=== PATIENT | male | born 1950 | race Caucasian/White ===

== ENCOUNTER 2020-06-29 19:44 | Inpatient (IN) ==
[2020-06-29] MEDS ORDERED: NS 0.9% 1000 ml BAG 1,000 ML IV ONE (21:06)
[2020-06-29] MEDS ORDERED: Lorazepam PYXIS KEY PRN (21:06)
[2020-06-29] MEDS ORDERED: LORazepam 2 mg VIAL 1 ml IV PUSH ONE (21:06)
[2020-06-29 23:00] LABS: ABS Basophils 0.1 10^3/ul (0-0.2); ABS Lymphocytes 0.9 10^3/ul (1.0-4.8); ABS Monocytes 0.4 10^3/ul (0-0.8); ABS Neutrophils 4.3 10^3/ul (1.5-7.7); Eosinophil % 0.4 %; Hematocrit 38 % (42-52); Hemoglobin 12.4 g/dL (14.0-18.0); Lymphocyte % 15.4 %; Mean Corpuscular HGB Conc 32 g/dL (31-36); Mean Corpuscular Hemoglobin 26 pg (27-31); Mean Corpuscular Volume 81 fL (80-94); Mean Platelet Volume 9.3 fL (7.4-10.4); Platelet Count 151 10^3/uL (150-450); Red Blood Count 4.76 10^6 /uL (4.18-5.48); Red Cell Distribution Width 23 % (10-15); White Blood Count 5.7 10^3/uL (3.5-10.8)
[2020-06-29 23:16] LABS: Alcohol, S 100 mg/dL (<10)
[2020-06-29 23:17] LABS: ALT 68 U/L (7-52); Albumin 4.1 g/dL (3.2-5.2); Albumin/Globulin Ratio 1.5 (1-3); Alkaline Phosphatase 166 U/L (34-104); BUN/Creatinine Ratio 12.5 (8-20); Blood Urea Nitrogen 10 mg/dL (6-24); C Reactive Protein 1.04 mg/L (<8.01); CO2 Carbon Dioxide 29 mmol/L (22-32); Calcium 9.1 mg/dL (8.6-10.3); Chloride 105 mmol/L (101-111); EGFR African American 116.7 (>60); EGFR Non-African American 96.4 (>60); Globulin 2.8 g/dL (2-4); Glucose 94 mg/dL (70-100); Sodium 143 mmol/L (135-145); Total Protein 6.9 g/dL (6.4-8.9)
[2020-06-29 23:19] LABS: Troponin I 0.01 ng/mL (<0.03)
[2020-06-29 23:34] LABS: Anion Gap 9 mmol/L (2-11)
[2020-06-30] MEDS ORDERED: LORazepam 2 mg VIAL 1 ml IV PUSH ONE ×3 (00:31→03:42)
[2020-06-30] MEDS ORDERED: Lorazepam PYXIS KEY PRN ×3 (00:31→03:42)
[2020-06-30 01:16] LABS: Potassium Redraw 3.3 mmol/L (3.5-5.0)
[2020-06-30] MEDS ORDERED: Potassium Chlor 20 meq TAB.ER PO ONE (01:22)
[2020-06-30] MEDS ORDERED: Thiamine 100 MG/ML 2 ml VIAL 100 MG, Folic Acid IV 1 MG, Multiple Vitamin IV ADULT 10 M... IV ONE (01:30)
[2020-06-30] MEDS ORDERED: Lisinopril/HCTZ 20/12.5 TB(NF) PO SCH ×2 (02:00→09:00)
[2020-06-30] MEDS: Nicotine PATCH 21 MG/24 HR PATCH TRANSDERM SCH ×2 (08:22→08:45)
[2020-06-30 08:47] LABS: ABS Basophils 0.1 10^3/ul (0-0.2); ABS Lymphocytes 0.9 10^3/ul (1.0-4.8); ABS Monocytes 0.7 10^3/ul (0-0.8); ABS Neutrophils 4.8 10^3/ul (1.5-7.7); Eosinophil % 0.5 %; Hematocrit 36 % (42-52); Hemoglobin 12.2 g/dL (14.0-18.0); Lymphocyte % 14.2 %; Mean Corpuscular HGB Conc 33 g/dL (31-36); Mean Corpuscular Hemoglobin 27 pg (27-31); Mean Corpuscular Volume 80 fL (80-94); Nucleated Red Blood Cells % 0.2; Platelet Count 141 10^3/uL (150-450); Red Blood Count 4.57 10^6 /uL (4.18-5.48); Red Cell Distribution Width 22 % (10-15); White Blood Count 6.6 10^3/uL (3.5-10.8)
[2020-06-30] MEDS: Multivitamins/Minerals TAB PO SCH (08:49)
[2020-06-30] MEDS: Enoxaparin 40 MG/0.4 ML SYR SUBCUT SCH (08:50)
[2020-06-30 08:52] LABS: Urine Appearance Clear; Urine Bilirubin Negative (Negative); Urine Blood Negative (Negative); Urine Color Straw; Urine Glucose Negative (Negative); Urine Ketones Negative (Negative); Urine Nitrite Negative (Negative); Urine Protein Negative (Negative); Urine Specific Gravity 1.006 (1.010-1.030); Urine Urobilinogen Negative (Negative)
[2020-06-30 08:54] LABS: BUN/Creatinine Ratio 12.8 (8-20); Calcium 9.2 mg/dL (8.6-10.3); EGFR African American 120.1 (>60); EGFR Non-African American 99.3 (>60); Potassium 3.4 mmol/L (3.5-5.0)
[2020-06-30 09:19] LABS: Urine Benzodiazepine Screen None Detected (None Detect); Urine Cannabinoids Screen None Detected (None Detect); Urine Opiates Screen None Detected (None Detect)
[2020-06-30] MEDS: LORazepam 2 mg VIAL 1 ml IV PUSH SCH (13:38)
[2020-07-01] MEDS: Hydrocortisone 0.5% OINT 1 TUBE TOPICAL SCH ×3 (01:14→21:22)
[2020-07-01 05:42] LABS: ABS Basophils 0.1 10^3/ul (0-0.2); ABS Eosinophils 0.1 10^3/ul (0-0.6); ABS Monocytes 0.5 10^3/ul (0-0.8); ABS Neutrophils 3.8 10^3/ul (1.5-7.7); Eosinophil % 2.1 %; Hematocrit 36 % (42-52); Lymphocyte % 17.8 %; Mean Corpuscular HGB Conc 34 g/dL (31-36); Mean Corpuscular Hemoglobin 27 pg (27-31); Mean Corpuscular Volume 80 fL (80-94); Mean Platelet Volume 8.9 fL (7.4-10.4); Nucleated Red Blood Cells % 0.1; Platelet Count 131 10^3/uL (150-450); Red Blood Count 4.52 10^6 /uL (4.18-5.48); Red Cell Distribution Width 22 % (10-15); White Blood Count 5.5 10^3/uL (3.5-10.8)
[2020-07-01 05:58] LABS: BUN/Creatinine Ratio 14.4 (8-20); Calcium 9.6 mg/dL (8.6-10.3); EGFR African American 101.8 (>60); EGFR Non-African American 84.2 (>60); Potassium 3.2 mmol/L (3.5-5.0)
[2020-07-01 06:13] LABS: TSH Ultra Thyroid Stim Horm 1.55 mcIU/mL (0.34-5.60)
[2020-07-01 06:25] LABS: Folate 13.51 ng/mL (>3.99)
[2020-07-01] MEDS: Enoxaparin 40 MG/0.4 ML SYR SUBCUT SCH (08:31)
[2020-07-01] MEDS: Multivitamins/Minerals TAB PO SCH (08:35)
[2020-07-01] MEDS: Nicotine PATCH 21 MG/24 HR PATCH TRANSDERM SCH (08:36)
[2020-07-01] MEDS ORDERED: Potassium Chlor 20 meq TAB.ER PO ONE (15:01)
[2020-07-01 15:45] LABS: Magnesium 1.9 mg/dL (1.9-2.7)
[2020-07-02 05:46] LABS: ABS Basophils 0.1 10^3/ul (0-0.2); ABS Eosinophils 0.2 10^3/ul (0-0.6); ABS Lymphocytes 1.2 10^3/ul (1.0-4.8); ABS Monocytes 0.5 10^3/ul (0-0.8); ABS Neutrophils 3.7 10^3/ul (1.5-7.7); Eosinophil % 2.8 %; Hematocrit 38 % (42-52); Hemoglobin 12.2 g/dL (14.0-18.0); Lymphocyte % 21.7 %; Mean Corpuscular HGB Conc 33 g/dL (31-36); Mean Corpuscular Hemoglobin 26 pg (27-31); Mean Corpuscular Volume 80 fL (80-94); Mean Platelet Volume 9.8 fL (7.4-10.4); Nucleated Red Blood Cells % 0.1; Platelet Count 141 10^3/uL (150-450); Red Blood Count 4.67 10^6 /uL (4.18-5.48); Red Cell Distribution Width 23 % (10-15); White Blood Count 5.7 10^3/uL (3.5-10.8)
[2020-07-02 05:57] LABS: BUN/Creatinine Ratio 17.7 (8-20); Calcium 10.1 mg/dL (8.6-10.3); EGFR African American 78.3 (>60); EGFR Non-African American 64.7 (>60); Magnesium 2.2 mg/dL (1.9-2.7); Potassium 3.7 mmol/L (3.5-5.0)
[2020-07-02] MEDS: Multivitamins/Minerals TAB PO SCH (08:26)
[2020-07-02] MEDS: Enoxaparin 40 MG/0.4 ML SYR SUBCUT SCH (08:26)
[2020-07-02] MEDS: Hydrocortisone 0.5% OINT 1 TUBE TOPICAL SCH ×2 (08:27→20:20)
[2020-07-02] MEDS: Nicotine PATCH 21 MG/24 HR PATCH TRANSDERM SCH (08:37)
[2020-07-03] MEDS: Hydrocortisone 0.5% OINT 1 TUBE TOPICAL SCH ×2 (09:27→20:16)
[2020-07-03] MEDS: Nicotine PATCH 21 MG/24 HR PATCH TRANSDERM SCH (09:27)
[2020-07-03] MEDS: Enoxaparin 40 MG/0.4 ML SYR SUBCUT SCH (09:28)
[2020-07-03] MEDS: Multivitamins/Minerals TAB PO SCH (09:30)
[2020-07-04 04:58] LABS: ABS Basophils 0.1 10^3/ul (0-0.2); ABS Eosinophils 0.2 10^3/ul (0-0.6); ABS Lymphocytes 1.3 10^3/ul (1.0-4.8); ABS Monocytes 0.7 10^3/ul (0-0.8); ABS Neutrophils 3.7 10^3/ul (1.5-7.7); Eosinophil % 3.5 %; Hematocrit 36 % (42-52); Lymphocyte % 21.5 %; Mean Corpuscular HGB Conc 33 g/dL (31-36); Mean Corpuscular Hemoglobin 27 pg (27-31); Mean Corpuscular Volume 81 fL (80-94); Mean Platelet Volume 9.8 fL (7.4-10.4); Platelet Count 148 10^3/uL (150-450); Red Cell Distribution Width 23 % (10-15)
[2020-07-04 05:05] LABS: BUN/Creatinine Ratio 23.8 (8-20); Calcium 9.5 mg/dL (8.6-10.3); EGFR African American 71.7 (>60); EGFR Non-African American 59.2 (>60); Potassium 3.4 mmol/L (3.5-5.0)
[2020-07-04] MEDS ORDERED: Potassium Chlor 20 meq TAB.ER PO ONE (08:28)
[2020-07-04] MEDS ORDERED: NS 0.9% 1000 ml BAG 1,000 ML IV SCH (08:30)
[2020-07-04] MEDS: Multivitamins/Minerals TAB PO SCH (10:01)
[2020-07-04] MEDS: Hydrocortisone 0.5% OINT 1 TUBE TOPICAL SCH ×2 (10:02→20:45)
[2020-07-04] MEDS: Enoxaparin 40 MG/0.4 ML SYR SUBCUT SCH (10:02)
[2020-07-04] MEDS: Nicotine PATCH 21 MG/24 HR PATCH TRANSDERM SCH (10:03)
[2020-07-04] MEDS ORDERED: Haloperidol 5 mg/ml SDV IV/IM 5 MG/ML AMP IV SLOW PU PRN (19:27)
[2020-07-04] MEDS: LORazepam 2 mg VIAL 1 ml IV PUSH SCH (20:41)
[2020-07-04] MEDS ORDERED: LORazepam 2 mg VIAL 1 ml IV PUSH SCH (21:00)
[2020-07-05 07:16] LABS: BUN/Creatinine Ratio 22.1 (8-20); Calcium 9.4 mg/dL (8.6-10.3); EGFR Non-African American 54.6 (>60); Potassium 3.7 mmol/L (3.5-5.0)
[2020-07-05] MEDS: Enoxaparin 40 MG/0.4 ML SYR SUBCUT SCH (08:06)
[2020-07-05] MEDS: Nicotine PATCH 21 MG/24 HR PATCH TRANSDERM SCH (08:07)
[2020-07-05] MEDS: Multivitamins/Minerals TAB PO SCH (08:08)
[2020-07-05] MEDS: NS 0.9% 1000 ml BAG 1,000 ML IV SCH ×2 (09:38→23:08)
[2020-07-05] MEDS: Hydrocortisone 0.5% OINT 1 TUBE TOPICAL SCH ×2 (10:35→21:38)
[2020-07-05] MEDS: Haloperidol 5 mg/ml SDV IV/IM 5 MG/ML AMP IM PRN (15:29)
[2020-07-05 16:56] LABS: Albumin 3.8 g/dL (3.2-5.2); Albumin/Globulin Ratio 1.7 (1-3); BUN/Creatinine Ratio 23.1 (8-20); Calcium 9.5 mg/dL (8.6-10.3); EGFR African American 75.2 (>60); EGFR Non-African American 62.2 (>60); Globulin 2.3 g/dL (2-4); Potassium 3.6 mmol/L (3.5-5.0); Total Bilirubin 0.6 mg/dL (0.2-1.0); Total Protein 6.1 g/dL (6.4-8.9)
[2020-07-05] MEDS ORDERED: Lorazepam PYXIS KEY PRN (18:55)
[2020-07-05] MEDS: LORazepam 2 mg VIAL 1 ml IV PUSH SCH ×2 (21:13→23:17)
[2020-07-06 05:10] LABS: Urine Appearance Cloudy; Urine Bilirubin Negative (Negative); Urine Blood 2+ (Negative); Urine Color Yellow; Urine Glucose Negative (Negative); Urine Ketones Negative (Negative); Urine Nitrite Positive (Negative); Urine Protein Negative (Negative); Urine Specific Gravity 1.011 (1.010-1.030); Urine Urobilinogen Negative (Negative)
[2020-07-06 05:25] LABS: Urine Bacteria Absent (Absent); Urine Red Blood Cell 2+(6-10/hpf) (Absent); Urine White Blood Cell 2+(11-20/hpf) (Absent)
[2020-07-06 06:14] LABS: Albumin 3.6 g/dL (3.2-5.2); Albumin/Globulin Ratio 1.5 (1-3); BUN/Creatinine Ratio 18.2 (8-20); Calcium 8.9 mg/dL (8.6-10.3); EGFR African American 91.2 (>60); EGFR Non-African American 75.4 (>60); Globulin 2.4 g/dL (2-4); Potassium 3.4 mmol/L (3.5-5.0); Total Bilirubin 0.9 mg/dL (0.2-1.0)
[2020-07-06 08:01] LABS: ABS Basophils 0.1 10^3/ul (0-0.2); ABS Eosinophils 0.1 10^3/ul (0-0.6); ABS Lymphocytes 0.8 10^3/ul (1.0-4.8); ABS Monocytes 0.8 10^3/ul (0-0.8); ABS Neutrophils 4.8 10^3/ul (1.5-7.7); Eosinophil % 1.7 %; Hematocrit 34 % (42-52); Lymphocyte % 12.5 %; Mean Corpuscular HGB Conc 33 g/dL (31-36); Mean Corpuscular Hemoglobin 27 pg (27-31); Mean Corpuscular Volume 82 fL (80-94); Mean Platelet Volume 9.8 fL (7.4-10.4); Platelet Count 137 10^3/uL (150-450); Red Blood Count 4.11 10^6 /uL (4.18-5.48); Red Cell Distribution Width 23 % (10-15); White Blood Count 6.7 10^3/uL (3.5-10.8)
[2020-07-06] MEDS: Enoxaparin 40 MG/0.4 ML SYR SUBCUT SCH (08:09)
[2020-07-06] MEDS: Nicotine PATCH 21 MG/24 HR PATCH TRANSDERM SCH (08:09)
[2020-07-06] MEDS: Multivitamins/Minerals TAB PO SCH (08:10)
[2020-07-06] MEDS: Hydrocortisone 0.5% OINT 1 TUBE TOPICAL SCH ×2 (08:10→20:38)
[2020-07-06] MEDS: Haloperidol 5 mg/ml SDV IV/IM 5 MG/ML AMP IM PRN (11:50)
[2020-07-06] MEDS: LORazepam 2 mg VIAL 1 ml IV PUSH PRN (12:39)
[2020-07-06] MEDS ORDERED: Potassium Chlor 20 meq TAB.ER PO ONE (13:11)
[2020-07-06] MEDS: cefTRIAXone 1 gm/50 mL NS BAG 1 GM/50 ML BAG IVPB SCH (14:05)
[2020-07-07 05:33] LABS: ABS Basophils 0.1 10^3/ul (0-0.2); ABS Eosinophils 0.2 10^3/ul (0-0.6); ABS Lymphocytes 1.1 10^3/ul (1.0-4.8); ABS Neutrophils 4.1 10^3/ul (1.5-7.7); Eosinophil % 2.7 %; Hematocrit 36 % (42-52); Hemoglobin 12.2 g/dL (14.0-18.0); Lymphocyte % 16.8 %; Mean Corpuscular HGB Conc 33 g/dL (31-36); Mean Corpuscular Hemoglobin 27 pg (27-31); Mean Corpuscular Volume 82 fL (80-94); Mean Platelet Volume 10.2 fL (7.4-10.4); Platelet Count 171 10^3/uL (150-450); Red Blood Count 4.44 10^6 /uL (4.18-5.48); Red Cell Distribution Width 23 % (10-15); White Blood Count 6.4 10^3/uL (3.5-10.8)
[2020-07-07 05:54] LABS: BUN/Creatinine Ratio 16.5 (8-20); Calcium 9.5 mg/dL (8.6-10.3); EGFR African American 87.2 (>60); Potassium 3.8 mmol/L (3.5-5.0)
[2020-07-07] MEDS: Nicotine PATCH 21 MG/24 HR PATCH TRANSDERM SCH (08:14)
[2020-07-07] MEDS: Multivitamins/Minerals TAB PO SCH (08:15)
[2020-07-07] MEDS: Enoxaparin 40 MG/0.4 ML SYR SUBCUT SCH (08:16)
[2020-07-07] MEDS: Hydrocortisone 0.5% OINT 1 TUBE TOPICAL SCH ×2 (08:16→20:52)
[2020-07-07] MEDS: cefTRIAXone 1 gm/50 mL NS BAG 1 GM/50 ML BAG IVPB SCH (12:39)
[2020-07-07] MEDS: LORazepam 2 mg VIAL 1 ml IV PUSH PRN (21:41)
[2020-07-08 05:25] LABS: BUN/Creatinine Ratio 18.6 (8-20); Calcium 9.3 mg/dL (8.6-10.3); EGFR African American 74.5 (>60); EGFR Non-African American 61.6 (>60); Potassium 3.5 mmol/L (3.5-5.0)
[2020-07-08] MEDS: Multivitamins/Minerals TAB PO SCH (08:49)
[2020-07-08] MEDS: Enoxaparin 40 MG/0.4 ML SYR SUBCUT SCH (08:49)
[2020-07-08] MEDS: Nicotine PATCH 21 MG/24 HR PATCH TRANSDERM SCH (08:49)
[2020-07-08] MEDS: Hydrocortisone 0.5% OINT 1 TUBE TOPICAL SCH ×3 (08:49→22:13)
[2020-07-08] MEDS: LORazepam 2 mg VIAL 1 ml IV PUSH PRN (13:21)
[2020-07-08] MEDS: cefTRIAXone 1 gm/50 mL NS BAG 1 GM/50 ML BAG IVPB SCH (13:21)
[2020-07-08] MEDS: Haloperidol 5 mg/ml SDV IV/IM 5 MG/ML AMP IM PRN (14:39)
[2020-07-09] MEDS: Multivitamins/Minerals TAB PO SCH (09:14)
[2020-07-09] MEDS: Enoxaparin 40 MG/0.4 ML SYR SUBCUT SCH ×2 (09:14→09:26)
[2020-07-09] MEDS: Hydrocortisone 0.5% OINT 1 TUBE TOPICAL SCH ×2 (09:16→21:27)
[2020-07-09] MEDS: Nicotine PATCH 21 MG/24 HR PATCH TRANSDERM SCH (09:26)
[2020-07-09] MEDS: cefTRIAXone 1 gm/50 mL NS BAG 1 GM/50 ML BAG IVPB SCH (14:32)
[2020-07-09] MEDS: LORazepam 2 mg VIAL 1 ml IV PUSH PRN (16:41)
[2020-07-09] MEDS: Haloperidol 5 mg/ml SDV IV/IM 5 MG/ML AMP IM PRN (23:44)
[2020-07-10] MEDS: LORazepam 2 mg VIAL 1 ml IV PUSH PRN ×3 (07:02→21:57)
[2020-07-10] MEDS: Haloperidol 5 mg/ml SDV IV/IM 5 MG/ML AMP IM PRN (07:39)
[2020-07-10] MEDS: Multivitamins/Minerals TAB PO SCH (09:36)
[2020-07-10] MEDS: Hydrocortisone 0.5% OINT 1 TUBE TOPICAL SCH ×2 (09:37→23:30)
[2020-07-10] MEDS: Nicotine PATCH 21 MG/24 HR PATCH TRANSDERM SCH (09:37)
[2020-07-10] MEDS: Enoxaparin 40 MG/0.4 ML SYR SUBCUT SCH (09:38)
[2020-07-10] MEDS ORDERED: LORazepam 2 mg VIAL 1 ml IV PUSH ONE (10:53)
[2020-07-10] MEDS ORDERED: LORazepam 2 mg VIAL 1 ml ONE (10:58)
[2020-07-10] MEDS: cefTRIAXone 1 gm/50 mL NS BAG 1 GM/50 ML BAG IVPB SCH (14:54)
[2020-07-11] MEDS: LORazepam 2 mg VIAL 1 ml IV PUSH PRN ×4 (03:42→23:25)
[2020-07-11] MEDS: Nicotine GUM 4MG FRUIT FLAVOR PO PRN ×2 (09:05→23:24)
[2020-07-11] MEDS: Multivitamins/Minerals TAB PO SCH (10:04)
[2020-07-11] MEDS: Enoxaparin 40 MG/0.4 ML SYR SUBCUT SCH (10:07)
[2020-07-11] MEDS: Nicotine PATCH 21 MG/24 HR PATCH TRANSDERM SCH (10:17)
[2020-07-11] MEDS: Hydrocortisone 0.5% OINT 1 TUBE TOPICAL SCH (10:17)
[2020-07-11] MEDS: cefTRIAXone 1 gm/50 mL NS BAG 1 GM/50 ML BAG IVPB SCH (14:00)
[2020-07-12] MEDS: Hydrocortisone 0.5% OINT 1 TUBE TOPICAL SCH ×4 (00:32→23:52)
[2020-07-12] MEDS: Multivitamins/Minerals TAB PO SCH (09:55)
[2020-07-12] MEDS: Enoxaparin 40 MG/0.4 ML SYR SUBCUT SCH (09:56)
[2020-07-12] MEDS: Nicotine PATCH 21 MG/24 HR PATCH TRANSDERM SCH (10:01)
[2020-07-12] MEDS: LORazepam 2 mg VIAL 1 ml IV PUSH PRN ×3 (12:01→22:21)
[2020-07-12] MEDS: Haloperidol 5 mg/ml SDV IV/IM 5 MG/ML AMP IM PRN (14:35)
[2020-07-12] MEDS: cefTRIAXone 1 gm/50 mL NS BAG 1 GM/50 ML BAG IVPB SCH (14:36)
[2020-07-12] MEDS: Nicotine GUM 4MG FRUIT FLAVOR PO PRN (20:08)
[2020-07-13] MEDS: Enoxaparin 40 MG/0.4 ML SYR SUBCUT SCH (09:40)
[2020-07-13] MEDS: Multivitamins/Minerals TAB PO SCH (09:41)
[2020-07-13] MEDS: Nicotine PATCH 21 MG/24 HR PATCH TRANSDERM SCH (09:41)
[2020-07-13] MEDS: Hydrocortisone 0.5% OINT 1 TUBE TOPICAL SCH ×2 (09:42→21:16)
[2020-07-13] MEDS: LORazepam 2 mg VIAL 1 ml IV PUSH PRN ×2 (17:47→23:19)
[2020-07-14] MEDS: Multivitamins/Minerals TAB PO SCH (07:47)
[2020-07-14] MEDS: Enoxaparin 40 MG/0.4 ML SYR SUBCUT SCH (07:49)
[2020-07-14] MEDS: Nicotine PATCH 21 MG/24 HR PATCH TRANSDERM SCH (07:49)
[2020-07-14] MEDS: Hydrocortisone 0.5% OINT 1 TUBE TOPICAL SCH ×2 (07:54→22:15)
[2020-07-14] MEDS: LORazepam 2 mg VIAL 1 ml IV PUSH PRN ×3 (08:34→22:12)
[2020-07-14] MEDS: Haloperidol 5 mg/ml SDV IV/IM 5 MG/ML AMP IM PRN (17:33)
[2020-07-15] MEDS: Enoxaparin 40 MG/0.4 ML SYR SUBCUT SCH (08:17)
[2020-07-15] MEDS: Multivitamins/Minerals TAB PO SCH (08:18)
[2020-07-15] MEDS: Nicotine PATCH 21 MG/24 HR PATCH TRANSDERM SCH (08:20)
[2020-07-15] MEDS: Hydrocortisone 0.5% OINT 1 TUBE TOPICAL SCH ×2 (08:20→19:55)
[2020-07-16] MEDS: Multivitamins/Minerals TAB PO SCH (08:44)
[2020-07-16] MEDS: Nicotine PATCH 21 MG/24 HR PATCH TRANSDERM SCH (08:46)
[2020-07-16] MEDS: Enoxaparin 40 MG/0.4 ML SYR SUBCUT SCH (08:46)
[2020-07-16] MEDS: Hydrocortisone 0.5% OINT 1 TUBE TOPICAL SCH ×2 (08:47→20:13)
[2020-07-16] MEDS: LORazepam 2 mg VIAL 1 ml IV PUSH PRN (09:06)
[2020-07-16] MEDS: Haloperidol 5 mg/ml SDV IV/IM 5 MG/ML AMP IM PRN (10:49)
[2020-07-17] MEDS: Enoxaparin 40 MG/0.4 ML SYR SUBCUT SCH (08:37)
[2020-07-17] MEDS: Nicotine PATCH 21 MG/24 HR PATCH TRANSDERM SCH ×2 (08:38→08:43)
[2020-07-17] MEDS: Multivitamins/Minerals TAB PO SCH (08:39)
[2020-07-17] MEDS: Hydrocortisone 0.5% OINT 1 TUBE TOPICAL SCH ×3 (08:41→19:51)
[2020-07-17] MEDS: Haloperidol 5 mg/ml SDV IV/IM 5 MG/ML AMP IM PRN (17:30)
[2020-07-17] MEDS: LORazepam 2 mg VIAL 1 ml IV PUSH PRN (18:20)
[2020-07-18 05:39] LABS: Hematocrit 37 % (42-52); Hemoglobin 11.7 g/dL (14.0-18.0); Mean Platelet Volume 9.1 fL (7.4-10.4); Platelet Count 220 10^3/uL (150-450)
[2020-07-18 06:19] LABS: EGFR African American 90.2 (>60); EGFR Non-African American 74.5 (>60)
[2020-07-18] MEDS: Enoxaparin 40 MG/0.4 ML SYR SUBCUT SCH (09:43)
[2020-07-18] MEDS: Hydrocortisone 0.5% OINT 1 TUBE TOPICAL SCH ×3 (09:43→22:33)
[2020-07-18] MEDS: Multivitamins/Minerals TAB PO SCH (09:43)
[2020-07-18] MEDS: Nicotine PATCH 21 MG/24 HR PATCH TRANSDERM SCH (09:48)
[2020-07-19] MEDS: LORazepam 2 mg VIAL 1 ml IV PUSH PRN ×2 (00:43→16:55)
[2020-07-19] MEDS: Multivitamins/Minerals TAB PO SCH (09:30)
[2020-07-19] MEDS: Enoxaparin 40 MG/0.4 ML SYR SUBCUT SCH (09:33)
[2020-07-19] MEDS: Nicotine PATCH 21 MG/24 HR PATCH TRANSDERM SCH (09:40)
[2020-07-19] MEDS: Hydrocortisone 0.5% OINT 1 TUBE TOPICAL SCH ×2 (09:41→20:38)
[2020-07-20] MEDS: LORazepam 2 mg VIAL 1 ml IV PUSH PRN (00:15)
[2020-07-20] MEDS: Enoxaparin 40 MG/0.4 ML SYR SUBCUT SCH (09:02)
[2020-07-20] MEDS: Nicotine PATCH 21 MG/24 HR PATCH TRANSDERM SCH (09:02)
[2020-07-20] MEDS: Multivitamins/Minerals TAB PO SCH (09:03)
[2020-07-20] MEDS: Hydrocortisone 0.5% OINT 1 TUBE TOPICAL SCH ×2 (11:04→21:17)
[2020-07-21] MEDS: Enoxaparin 40 MG/0.4 ML SYR SUBCUT SCH (09:56)
[2020-07-21] MEDS: Multivitamins/Minerals TAB PO SCH (09:58)
[2020-07-21] MEDS: Hydrocortisone 0.5% OINT 1 TUBE TOPICAL SCH ×2 (10:04→19:18)
[2020-07-21] MEDS: Nicotine PATCH 21 MG/24 HR PATCH TRANSDERM SCH (10:04)
[2020-07-22] MEDS: Enoxaparin 40 MG/0.4 ML SYR SUBCUT SCH (07:28)
[2020-07-22] MEDS: Multivitamins/Minerals TAB PO SCH (07:30)
[2020-07-22] MEDS: Nicotine PATCH 21 MG/24 HR PATCH TRANSDERM SCH (07:32)
[2020-07-22] MEDS: Hydrocortisone 0.5% OINT 1 TUBE TOPICAL SCH ×2 (07:38→20:34)
[2020-07-23] MEDS: Multivitamins/Minerals TAB PO SCH (09:32)
[2020-07-23] MEDS: Nicotine PATCH 21 MG/24 HR PATCH TRANSDERM SCH (09:36)
[2020-07-23] MEDS: Enoxaparin 40 MG/0.4 ML SYR SUBCUT SCH (09:36)
[2020-07-23] MEDS: Hydrocortisone 0.5% OINT 1 TUBE TOPICAL SCH ×2 (09:37→20:41)
[2020-07-23] MEDS: LORazepam 2 mg VIAL 1 ml IV PUSH PRN (11:20)
[2020-07-24] MEDS: Multivitamins/Minerals TAB PO SCH (08:19)
[2020-07-24] MEDS: Hydrocortisone 0.5% OINT 1 TUBE TOPICAL SCH ×2 (08:20→20:11)
[2020-07-24] MEDS: Nicotine PATCH 21 MG/24 HR PATCH TRANSDERM SCH (08:20)
[2020-07-24] MEDS: Enoxaparin 40 MG/0.4 ML SYR SUBCUT SCH ×2 (08:29→08:31)
[2020-07-25] MEDS: Multivitamins/Minerals TAB PO SCH (09:04)
[2020-07-25] MEDS: Enoxaparin 40 MG/0.4 ML SYR SUBCUT SCH (09:04)
[2020-07-25] MEDS: Nicotine PATCH 21 MG/24 HR PATCH TRANSDERM SCH (09:05)
[2020-07-25] MEDS: Hydrocortisone 0.5% OINT 1 TUBE TOPICAL SCH ×3 (09:05→23:06)
[2020-07-26] MEDS: Nicotine PATCH 21 MG/24 HR PATCH TRANSDERM SCH (09:19)
[2020-07-26] MEDS: Multivitamins/Minerals TAB PO SCH (09:19)
[2020-07-26] MEDS: Hydrocortisone 0.5% OINT 1 TUBE TOPICAL SCH ×2 (09:20→21:13)
[2020-07-26] MEDS: Enoxaparin 40 MG/0.4 ML SYR SUBCUT SCH (09:24)
[2020-07-27] MEDS: Multivitamins/Minerals TAB PO SCH (09:53)
[2020-07-27] MEDS: Enoxaparin 40 MG/0.4 ML SYR SUBCUT SCH (09:54)
[2020-07-27] MEDS: Nicotine PATCH 21 MG/24 HR PATCH TRANSDERM SCH (09:55)
[2020-07-27] MEDS: Hydrocortisone 0.5% OINT 1 TUBE TOPICAL SCH ×2 (09:56→21:00)
[2020-07-28] MEDS: Enoxaparin 40 MG/0.4 ML SYR SUBCUT SCH ×2 (09:20→09:25)
[2020-07-28] MEDS: Multivitamins/Minerals TAB PO SCH (09:22)
[2020-07-28] MEDS: Hydrocortisone 0.5% OINT 1 TUBE TOPICAL SCH ×2 (09:25→21:05)
[2020-07-28] MEDS: Nicotine PATCH 21 MG/24 HR PATCH TRANSDERM SCH (09:25)
[2020-07-29] MEDS: Enoxaparin 40 MG/0.4 ML SYR SUBCUT SCH (08:25)
[2020-07-29] MEDS: Nicotine PATCH 21 MG/24 HR PATCH TRANSDERM SCH (08:25)
[2020-07-29] MEDS: Multivitamins/Minerals TAB PO SCH (08:27)
[2020-07-29] MEDS: Hydrocortisone 0.5% OINT 1 TUBE TOPICAL SCH ×2 (08:28→22:20)
[2020-07-30] MEDS: Multivitamins/Minerals TAB PO SCH (08:42)
[2020-07-30] MEDS: Enoxaparin 40 MG/0.4 ML SYR SUBCUT SCH (08:43)
[2020-07-30] MEDS: Nicotine PATCH 21 MG/24 HR PATCH TRANSDERM SCH (08:43)
[2020-07-30] MEDS: Hydrocortisone 0.5% OINT 1 TUBE TOPICAL SCH ×2 (10:30→20:00)
[2020-07-31] MEDS: Enoxaparin 40 MG/0.4 ML SYR SUBCUT SCH (08:12)
[2020-07-31] MEDS: Nicotine PATCH 21 MG/24 HR PATCH TRANSDERM SCH (08:13)
[2020-07-31] MEDS: Multivitamins/Minerals TAB PO SCH (08:27)
[2020-07-31] MEDS: Hydrocortisone 0.5% OINT 1 TUBE TOPICAL SCH ×2 (08:28→20:08)
[2020-07-31] MEDS: HYDROCORTISONE 0.5% TOPICAL SCH (21:51)
[2020-08-01] MEDS: Multivitamins/Minerals TAB PO SCH (07:43)
[2020-08-01] MEDS: Enoxaparin 40 MG/0.4 ML SYR SUBCUT SCH (07:47)
[2020-08-01] MEDS: HYDROCORTISONE 0.5% TOPICAL SCH ×2 (07:47→19:32)
[2020-08-01] MEDS: Nicotine PATCH 21 MG/24 HR PATCH TRANSDERM SCH (07:47)
[2020-08-02] MEDS: Multivitamins/Minerals TAB PO SCH (09:06)
[2020-08-02] MEDS: HYDROCORTISONE 0.5% TOPICAL SCH ×2 (09:06→21:56)
[2020-08-02] MEDS: Enoxaparin 40 MG/0.4 ML SYR SUBCUT SCH (09:19)
[2020-08-02] MEDS: Nicotine PATCH 21 MG/24 HR PATCH TRANSDERM SCH (09:19)
[2020-08-03] MEDS: Multivitamins/Minerals TAB PO SCH (10:29)
[2020-08-03] MEDS: Enoxaparin 40 MG/0.4 ML SYR SUBCUT SCH (10:31)
[2020-08-03] MEDS: Nicotine PATCH 21 MG/24 HR PATCH TRANSDERM SCH (10:31)
[2020-08-03] MEDS: HYDROCORTISONE 0.5% TOPICAL SCH ×2 (10:31→21:01)
[2020-08-04] MEDS: Multivitamins/Minerals TAB PO SCH (10:21)
[2020-08-04] MEDS: Nicotine PATCH 21 MG/24 HR PATCH TRANSDERM SCH (10:22)
[2020-08-04] MEDS: HYDROCORTISONE 0.5% TOPICAL SCH ×2 (10:22→20:06)
[2020-08-04] MEDS: Enoxaparin 40 MG/0.4 ML SYR SUBCUT SCH (10:22)
[2020-08-05] MEDS: Multivitamins/Minerals TAB PO SCH (09:31)
[2020-08-05] MEDS: Enoxaparin 40 MG/0.4 ML SYR SUBCUT SCH (09:38)
[2020-08-05] MEDS: HYDROCORTISONE 0.5% TOPICAL SCH ×2 (09:39→21:21)
[2020-08-05] MEDS: Nicotine PATCH 21 MG/24 HR PATCH TRANSDERM SCH (09:39)
[2020-08-05] MEDS ORDERED: Haloperidol 5 mg/ml SDV IV/IM 5 MG/ML AMP IM PRN (13:01)
[2020-08-06] MEDS: HYDROCORTISONE 0.5% TOPICAL SCH ×2 (08:59→20:24)
[2020-08-06] MEDS: Enoxaparin 40 MG/0.4 ML SYR SUBCUT SCH (09:00)
[2020-08-06] MEDS: Multivitamins/Minerals TAB PO SCH (09:00)
[2020-08-06] MEDS: Nicotine PATCH 21 MG/24 HR PATCH TRANSDERM SCH (09:01)
[2020-08-07] MEDS: Multivitamins/Minerals TAB PO SCH (09:12)
[2020-08-07] MEDS: Enoxaparin 40 MG/0.4 ML SYR SUBCUT SCH (09:13)
[2020-08-07] MEDS: Nicotine PATCH 21 MG/24 HR PATCH TRANSDERM SCH (09:13)
[2020-08-07] MEDS: HYDROCORTISONE 0.5% TOPICAL SCH ×2 (09:14→19:45)
[2020-08-08] MEDS: Multivitamins/Minerals TAB PO SCH (10:01)
[2020-08-08] MEDS: HYDROCORTISONE 0.5% TOPICAL SCH ×2 (10:01→20:09)
[2020-08-08] MEDS: Enoxaparin 40 MG/0.4 ML SYR SUBCUT SCH (10:02)
[2020-08-08] MEDS: Nicotine PATCH 21 MG/24 HR PATCH TRANSDERM SCH (10:02)
[2020-08-09] MEDS: Nicotine PATCH 21 MG/24 HR PATCH TRANSDERM SCH (07:30)
[2020-08-09] MEDS: Enoxaparin 40 MG/0.4 ML SYR SUBCUT SCH (07:31)
[2020-08-09] MEDS: HYDROCORTISONE 0.5% TOPICAL SCH ×2 (07:31→19:38)
[2020-08-09] MEDS: Multivitamins/Minerals TAB PO SCH (07:36)
[2020-08-10] MEDS: HYDROCORTISONE 0.5% TOPICAL SCH ×2 (08:40→20:43)
[2020-08-10] MEDS: Multivitamins/Minerals TAB PO SCH (08:40)
[2020-08-10] MEDS: Nicotine PATCH 21 MG/24 HR PATCH TRANSDERM SCH (08:40)
[2020-08-10] MEDS: Enoxaparin 40 MG/0.4 ML SYR SUBCUT SCH (09:13)
[2020-08-11] MEDS: Multivitamins/Minerals TAB PO SCH (08:19)
[2020-08-11] MEDS: HYDROCORTISONE 0.5% TOPICAL SCH ×2 (08:22→20:48)
[2020-08-11] MEDS: Nicotine PATCH 21 MG/24 HR PATCH TRANSDERM SCH (08:22)
[2020-08-11] MEDS: Enoxaparin 40 MG/0.4 ML SYR SUBCUT SCH (08:22)
[2020-08-12] MEDS: Multivitamins/Minerals TAB PO SCH (07:50)
[2020-08-12] MEDS: Enoxaparin 40 MG/0.4 ML SYR SUBCUT SCH (07:52)
[2020-08-12] MEDS: HYDROCORTISONE 0.5% TOPICAL SCH ×2 (07:52→21:00)
[2020-08-12] MEDS: Nicotine PATCH 21 MG/24 HR PATCH TRANSDERM SCH (07:53)
[2020-08-13] MEDS: Multivitamins/Minerals TAB PO SCH (08:44)
[2020-08-13] MEDS: HYDROCORTISONE 0.5% TOPICAL SCH (08:45)
[2020-08-13] MEDS: Nicotine PATCH 21 MG/24 HR PATCH TRANSDERM SCH (08:45)
[2020-08-13] MEDS: Enoxaparin 40 MG/0.4 ML SYR SUBCUT SCH (08:45)
[2020-08-13 08:50] VITALS: BP 128/72
== END 2020-08-13 16:50 | DRG 897 ==
LOC: ED 19:44 → MEDTELE 06-30 03:22 → SUATTDRO 06-30 03:22 → MEDTELE 06-30 06:10
PROVIDERS: ADMIT Internal Medicine; ATTEND Student in an Organized Health Care Education/Training Program

== ENCOUNTER 2020-12-15 13:31 | Inpatient (IN) ==
[2020-12-15] MEDS ORDERED: NS 0.9% 1000 ml BAG 1,000 ML IV ONE (14:02)
[2020-12-15 15:22] LABS: ABS Basophils 0.1 10^3/ul (0-0.2); ABS Eosinophils 0.1 10^3/ul (0-0.6); ABS Lymphocytes 0.7 10^3/ul (1.0-4.8); ABS Monocytes 1.1 10^3/ul (0-0.8); ABS Neutrophils 11.4 10^3/ul (1.5-7.7); Eosinophil % 1.1 %; Hematocrit 48 % (42-52); Hemoglobin 16.3 g/dL (14.0-18.0); Lymphocyte % 5.4 %; Mean Corpuscular HGB Conc 34 g/dL (31-36); Mean Corpuscular Hemoglobin 31 pg (27-31); Mean Corpuscular Volume 91 fL (80-94); Nucleated Red Blood Cells % 0.1; Platelet Count 143 10^3/uL (150-450); Red Blood Count 5.24 10^6 /uL (4.18-5.48); Red Cell Distribution Width 17 % (10-15); White Blood Count 13.4 10^3/uL (3.5-10.8)
[2020-12-15 15:35] LABS: Troponin I 0.05 ng/mL (<0.03)
[2020-12-15 15:45] LABS: ALT 15 U/L (7-52); AST 15 U/L (13-39); Albumin 3.8 g/dL (3.2-5.2); Albumin/Globulin Ratio 1.3 (1-3); Alkaline Phosphatase 97 U/L (35-149); Anion Gap 12 mmol/L (2-11); Blood Urea Nitrogen 19 mg/dL (6-24); CO2 Carbon Dioxide 22 mmol/L (22-32); Calcium 9.7 mg/dL (8.6-10.3); Chloride 105 mmol/L (101-111); Globulin 2.9 g/dL (2-4); Glucose 109 mg/dL (70-100); Magnesium 2.1 mg/dL (1.9-2.7); Sodium 139 mmol/L (135-145); Total Protein 6.7 g/dL (6.4-8.9)
[2020-12-15 16:18] LABS: Alcohol, S < 10 mg/dL (<10)
[2020-12-15 18:41] LABS: Valproic Acid < 13.0 mcg/mL (50-100)
[2020-12-15] MEDS ORDERED: Piperacillin/Tazobac ADVAN 3.375 GM in NS 0.9% 100 ml BAG 100 ML IV ONE (19:40)
[2020-12-15] MEDS ORDERED: Zosyn per Pharmacy NOTE FOLLOW UP SCH (20:00)
[2020-12-15 20:08] LABS: Albumin 3.5 g/dL (3.2-5.2); Albumin/Globulin Ratio 1.3 (1-3); Calcium 9.2 mg/dL (8.6-10.3); EGFR African American 70.8 (>60); EGFR Non-African American 58.5 (>60); Globulin 2.7 g/dL (2-4); Potassium 4.1 mmol/L (3.5-5.0); Total Protein 6.2 g/dL (6.4-8.9)
[2020-12-15 20:54] LABS: Troponin I 0.07 ng/mL (<0.03)
[2020-12-15 21:54] LABS: Urine Appearance Cloudy; Urine Bilirubin Negative (Negative); Urine Blood 1+ (Negative); Urine Color Amber; Urine Glucose Negative (Negative); Urine Ketones Negative (Negative); Urine Nitrite Positive (Negative); Urine Protein 1+(30 mg/dL) (Negative); Urine Specific Gravity 1.028 (1.002-1.030); Urine Urobilinogen Negative (Negative)
[2020-12-15 22:10] LABS: Urine Benzodiazepine Screen None Detected (None Detect); Urine Cannabinoids Screen None Detected (None Detect); Urine Opiates Screen None Detected (None Detect)
[2020-12-15] MEDS: Enoxaparin 40 MG/0.4 ML SYR SUBCUT SCH (22:34)
[2020-12-15 22:39] LABS: Urine Bacteria 1+ (Absent); Urine Red Blood Cell 3+(>10/hpf) (Absent); Urine Squamous Epithelial Cell Present (Absent); Urine White Blood Cell 3+(>20/hpf) (Absent)
[2020-12-15 23:30] LABS: Troponin I 0.06 ng/mL (<0.03)
[2020-12-16] MEDS: ZOSYN 3.375 GM Q8H per EXTENDED INFUSION IV SCH ×2 (04:20→11:37)
[2020-12-16] MEDS: Multivitamins/Minerals TAB PO SCH (08:39)
[2020-12-16 08:55] LABS: ABS Basophils 0.1 10^3/ul (0-0.2); ABS Eosinophils 0.2 10^3/ul (0-0.6); ABS Lymphocytes 1.3 10^3/ul (1.0-4.8); ABS Monocytes 0.9 10^3/ul (0-0.8); Hematocrit 45 % (42-52); Hemoglobin 15.4 g/dL (14.0-18.0); Lymphocyte % 13.4 %; Mean Corpuscular HGB Conc 34 g/dL (31-36); Mean Corpuscular Hemoglobin 31 pg (27-31); Mean Corpuscular Volume 89 fL (80-94); Mean Platelet Volume 9.4 fL (7.4-10.4); Platelet Count 152 10^3/uL (150-450); Red Blood Count 5.01 10^6 /uL (4.18-5.48); Red Cell Distribution Width 18 % (10-15); White Blood Count 9.5 10^3/uL (3.5-10.8)
[2020-12-16 09:12] LABS: INR 1.21 (0.86-1.15)
[2020-12-16] MEDS ORDERED: NS 0.9% 1000 ml BAG 1,000 ML IV SCH (10:30)
[2020-12-16] MEDS ORDERED: Lorazepam PYXIS KEY PRN (10:34)
[2020-12-16] MEDS: cefTRIAXone 1 gm/50 mL NS BAG 1 GM/50 ML BAG IVPB SCH (14:57)
[2020-12-16] MEDS: Enoxaparin 40 MG/0.4 ML SYR SUBCUT SCH (20:38)
[2020-12-17 06:52] LABS: ABS Basophils 0.1 10^3/ul (0-0.2); ABS Eosinophils 0.2 10^3/ul (0-0.6); ABS Monocytes 1.2 10^3/ul (0-0.8); ABS Neutrophils 8.5 10^3/ul (1.5-7.7); Eosinophil % 1.5 %; Hematocrit 39 % (42-52); Hemoglobin 13.8 g/dL (14.0-18.0); Lymphocyte % 9.4 %; Mean Corpuscular HGB Conc 35 g/dL (31-36); Mean Corpuscular Hemoglobin 32 pg (27-31); Mean Corpuscular Volume 90 fL (80-94); Mean Platelet Volume 9.7 fL (7.4-10.4); Platelet Count 142 10^3/uL (150-450); Red Blood Count 4.36 10^6 /uL (4.18-5.48); Red Cell Distribution Width 17 % (10-15)
[2020-12-17 07:12] LABS: Calcium 8.8 mg/dL (8.6-10.3); EGFR African American 81.4 (>60); EGFR Non-African American 67.3 (>60); Potassium 3.9 mmol/L (3.5-5.0)
[2020-12-17] MEDS: Multivitamins/Minerals TAB PO SCH (08:25)
[2020-12-17] MEDS ORDERED: Iohexol 300 (CONTRAST) 10 ML SDV IV ONE (13:38)
[2020-12-17] MEDS: cefTRIAXone 1 gm/50 mL NS BAG 1 GM/50 ML BAG IVPB SCH (14:43)
[2020-12-17] MEDS ORDERED: Lorazepam PYXIS KEY PRN (19:42)
[2020-12-17] MEDS ORDERED: LORazepam 2 mg VIAL 1 ml IV PUSH ONE (19:43)
[2020-12-17] MEDS: Enoxaparin 40 MG/0.4 ML SYR SUBCUT SCH (21:30)
[2020-12-17] MEDS: LORazepam 2 mg VIAL 1 ml IV PUSH SCH (22:53)
[2020-12-18] MEDS ORDERED: Iohexol 350 (CONTRAST) 500 ML MDV IV ONE (00:26)
[2020-12-18 05:30] LABS: ABS Basophils 0.1 10^3/ul (0-0.2); ABS Eosinophils 0.1 10^3/ul (0-0.6); ABS Lymphocytes 1.3 10^3/ul (1.0-4.8); ABS Monocytes 1.3 10^3/ul (0-0.8); ABS Neutrophils 9.4 10^3/ul (1.5-7.7); Eosinophil % 0.7 %; Hematocrit 44 % (42-52); Lymphocyte % 10.5 %; Mean Corpuscular HGB Conc 34 g/dL (31-36); Mean Corpuscular Hemoglobin 31 pg (27-31); Mean Corpuscular Volume 92 fL (80-94); Mean Platelet Volume 9.9 fL (7.4-10.4); Platelet Count 145 10^3/uL (150-450); Red Blood Count 4.79 10^6 /uL (4.18-5.48); Red Cell Distribution Width 18 % (10-15); White Blood Count 12.2 10^3/uL (3.5-10.8)
[2020-12-18 06:39] LABS: Potassium 3.2 mmol/L (3.5-5.0)
[2020-12-18 06:43] LABS: EGFR African American 209.7 (>60); EGFR Non-African American 173.3 (>60)
[2020-12-18 06:54] LABS: Calcium 5.2 mg/dL (8.6-10.3)
[2020-12-18] MEDS ORDERED: Glucose ORAL 15 GM TUBE PO ONE (08:02)
[2020-12-18] MEDS: Multivitamins/Minerals TAB PO SCH (08:33)
[2020-12-18 08:58] LABS: CO2 Carbon Dioxide 23 mmol/L (22-32); Chloride 106 mmol/L (101-111); Sodium 136 mmol/L (135-145)
[2020-12-18 09:04] LABS: Blood Urea Nitrogen 14 mg/dL (6-24); EGFR Non-African American 88.4 (>60); Glucose 112 mg/dL (70-100)
[2020-12-18 09:33] LABS: Anion Gap 7 mmol/L (2-11)
[2020-12-18 12:05] LABS: Cholesterol 128 mg/dL; HDL Cholesterol 33.2 mg/dL; LDL Cholesterol 76 mg/dL; Triglycerides 95 mg/dL
[2020-12-18] MEDS ORDERED: Thiamine 100 MG/ML 2 ml VIAL 500 MG in NS 0.9% 250 ml 250 ML IV ONE (13:40)
[2020-12-18] MEDS: LORazepam 2 mg VIAL 1 ml IV PUSH SCH (14:07)
[2020-12-18] MEDS: cefTRIAXone 1 gm/50 mL NS BAG 1 GM/50 ML BAG IVPB SCH (14:08)
[2020-12-18 18:29] LABS: PCO2 Arterial 34 mmHg (35-45); PO2 Arterial 65 mmHg (80-100)
[2020-12-18] MEDS: Enoxaparin 40 MG/0.4 ML SYR SUBCUT SCH (20:05)
[2020-12-19] MEDS ORDERED: Vancomycin 1,000 MG in NS 0.9% 250 ml 250 ML IVPB ONE (02:34)
[2020-12-19] MEDS ORDERED: Vancomycin per Pharmacy 1 EA NOTE FOLLOW UP SCH (03:00)
[2020-12-19] MEDS ORDERED: Vancomycin 1,500 MG in NS 0.9% 250 ml 250 ML IVPB ONE ×2 (03:00→04:00)
[2020-12-19 03:20] LABS: ABS Basophils 0.1 10^3/ul (0-0.2); ABS Lymphocytes 0.8 10^3/ul (1.0-4.8); ABS Monocytes 1.5 10^3/ul (0-0.8); ABS Neutrophils 11.6 10^3/ul (1.5-7.7); Eosinophil % 0.2 %; Hematocrit 41 % (42-52); Hemoglobin 14.1 g/dL (14.0-18.0); Lymphocyte % 5.9 %; Mean Corpuscular HGB Conc 35 g/dL (31-36); Mean Corpuscular Hemoglobin 31 pg (27-31); Mean Corpuscular Volume 90 fL (80-94); Mean Platelet Volume 10.1 fL (7.4-10.4); Platelet Count 158 10^3/uL (150-450); Red Blood Count 4.52 10^6 /uL (4.18-5.48); Red Cell Distribution Width 18 % (10-15); White Blood Count 14.1 10^3/uL (3.5-10.8)
[2020-12-19] MEDS: Cefepime 1 GM in Dextrose 1 GM/50 ML BAG IV SCH ×2 (03:21→17:32)
[2020-12-19 03:35] LABS: C Reactive Protein 279.05 mg/L (<8.01); Calcium 9.2 mg/dL (8.6-10.3); EGFR African American 81.4 (>60); EGFR Non-African American 67.3 (>60); Potassium 4.3 mmol/L (3.5-5.0)
[2020-12-19] MEDS: metroNIDAZOLE IV 500 MG/100ML 500 MG/100 ML BAG IVPB SCH ×3 (05:04→20:54)
[2020-12-19] MEDS: Pantoprazole VIAL 40 MG VIAL IV SCH (06:03)
[2020-12-19] MEDS ORDERED: Lorazepam PYXIS KEY PRN (06:26)
[2020-12-19] MEDS ORDERED: LORazepam 2 mg VIAL 1 ml IV PUSH ONE (06:27)
[2020-12-19 07:01] LABS: Urine Appearance Cloudy; Urine Bilirubin Negative (Negative); Urine Blood 1+ (Negative); Urine Color Amber; Urine Glucose Negative (Negative); Urine Ketones 1+ (Negative); Urine Nitrite Negative (Negative); Urine Protein 2+(100 mg/dL) (Negative); Urine Specific Gravity 1.029 (1.002-1.030); Urine Urobilinogen Positive (Negative)
[2020-12-19 07:23] LABS: Urine Bacteria Absent (Absent); Urine Red Blood Cell 3+(>10/hpf) (Absent); Urine Squamous Epithelial Cell Present (Absent); Urine White Blood Cell 1+(6-10/hpf) (Absent)
[2020-12-19] MEDS: Multivitamins/Minerals TAB PO SCH (08:30)
[2020-12-19] MEDS: Thiamine 100 MG/ML 2 ml VIAL 500 MG in NS 0.9% 250 ml 250 ML IV SCH (10:32)
[2020-12-19] MEDS ORDERED: Furosemide 20 mg/2 ml IV VIAL IV ONE (18:23)
[2020-12-19] MEDS: Albuterol/Ipratropium NEB.SOL (2.5/0.5 MG) 3 ML NEB.SOLN INH SCH ×2 (18:59→22:52)
[2020-12-19] MEDS: Enoxaparin 40 MG/0.4 ML SYR SUBCUT SCH (20:45)
[2020-12-20] MEDS: Cefepime 1 GM in Dextrose 1 GM/50 ML BAG IV SCH ×2 (02:05→16:41)
[2020-12-20] MEDS: Albuterol/Ipratropium NEB.SOL (2.5/0.5 MG) 3 ML NEB.SOLN INH SCH ×6 (02:56→23:12)
[2020-12-20 05:45] LABS: ABS Lymphocytes 0.4 10^3/ul (1.0-4.8); ABS Monocytes 1.2 10^3/ul (0-0.8); ABS Neutrophils 13.3 10^3/ul (1.5-7.7); Hematocrit 44 % (42-52); Hemoglobin 14.6 g/dL (14.0-18.0); Lymphocyte % 2.8 %; Mean Corpuscular HGB Conc 33 g/dL (31-36); Mean Corpuscular Hemoglobin 31 pg (27-31); Mean Corpuscular Volume 95 fL (80-94); Mean Platelet Volume 9.6 fL (7.4-10.4); Nucleated Red Blood Cells % 0.1; Platelet Count 156 10^3/uL (150-450); Red Blood Count 4.66 10^6 /uL (4.18-5.48); Red Cell Distribution Width 18 % (10-15); White Blood Count 14.9 10^3/uL (3.5-10.8)
[2020-12-20 06:01] LABS: Anion Gap 11 mmol/L (2-11); CO2 Carbon Dioxide 18 mmol/L (22-32); Calcium 8.5 mg/dL (8.6-10.3); Chloride 104 mmol/L (101-111); Sodium 133 mmol/L (135-145)
[2020-12-20 06:06] LABS: Blood Urea Nitrogen 24 mg/dL (6-24); EGFR African American 79.7 (>60); EGFR Non-African American 65.9 (>60); Glucose 136 mg/dL (70-100)
[2020-12-20] MEDS: Pantoprazole VIAL 40 MG VIAL IV SCH (06:06)
[2020-12-20] MEDS: metroNIDAZOLE IV 500 MG/100ML 500 MG/100 ML BAG IVPB SCH ×2 (06:06→16:41)
[2020-12-20] MEDS: Thiamine 100 MG/ML 2 ml VIAL 500 MG in NS 0.9% 250 ml 250 ML IV SCH (09:43)
[2020-12-20] MEDS: Multivitamins/Minerals TAB PO SCH (09:48)
[2020-12-20] MEDS: Amoxicillin/Clavul 500/125 TAB (Augmentin 500 mg tab) PO SCH (21:35)
[2020-12-20] MEDS: Enoxaparin 40 MG/0.4 ML SYR SUBCUT SCH (21:40)
[2020-12-21] MEDS: Albuterol/Ipratropium NEB.SOL (2.5/0.5 MG) 3 ML NEB.SOLN INH SCH ×2 (02:28→06:16)
[2020-12-21] MEDS: Pantoprazole VIAL 40 MG VIAL IV SCH (05:37)
[2020-12-21] MEDS ORDERED: Albuterol/Ipratropium NEB.SOL (2.5/0.5 MG) 3 ML NEB.SOLN INH PRN (06:40)
[2020-12-21] MEDS: Thiamine 100 MG/ML 2 ml VIAL 500 MG in NS 0.9% 250 ml 250 ML IV SCH (08:57)
[2020-12-21] MEDS: Multivitamins/Minerals TAB PO SCH (09:19)
[2020-12-21] MEDS: Amoxicillin/Clavul 500/125 TAB (Augmentin 500 mg tab) PO SCH ×2 (09:20→21:06)
[2020-12-21] MEDS: Enoxaparin 40 MG/0.4 ML SYR SUBCUT SCH (21:07)
[2020-12-22] MEDS: Pantoprazole VIAL 40 MG VIAL IV SCH (05:18)
[2020-12-22 06:25] LABS: ABS Basophils 0.1 10^3/ul (0-0.2); ABS Lymphocytes 1.3 10^3/ul (1.0-4.8); ABS Monocytes 1.2 10^3/ul (0-0.8); ABS Neutrophils 11.7 10^3/ul (1.5-7.7); Hematocrit 41 % (42-52); Hemoglobin 13.8 g/dL (14.0-18.0); Lymphocyte % 8.8 %; Mean Corpuscular HGB Conc 34 g/dL (31-36); Mean Corpuscular Hemoglobin 30 pg (27-31); Mean Corpuscular Volume 90 fL (80-94); Mean Platelet Volume 10.5 fL (7.4-10.4); Platelet Count 262 10^3/uL (150-450); Red Blood Count 4.54 10^6 /uL (4.18-5.48); Red Cell Distribution Width 18 % (10-15); White Blood Count 14.2 10^3/uL (3.5-10.8)
[2020-12-22 06:35] LABS: Calcium 8.8 mg/dL (8.6-10.3); Potassium 4.4 mmol/L (3.5-5.0)
[2020-12-22 06:40] LABS: EGFR African American 97.8 (>60); EGFR Non-African American 80.8 (>60)
[2020-12-22] MEDS: Multivitamins/Minerals TAB PO SCH (09:27)
[2020-12-22] MEDS: Amoxicillin/Clavul 500/125 TAB (Augmentin 500 mg tab) PO SCH ×2 (09:27→20:20)
[2020-12-22] MEDS: Enoxaparin 40 MG/0.4 ML SYR SUBCUT SCH (20:17)
[2020-12-23] MEDS: Amoxicillin/Clavul 500/125 TAB (Augmentin 500 mg tab) PO SCH ×2 (08:26→21:20)
[2020-12-23] MEDS: Multivitamins/Minerals TAB PO SCH (08:27)
[2020-12-23] MEDS: Enoxaparin 40 MG/0.4 ML SYR SUBCUT SCH (21:20)
[2020-12-24 08:38] LABS: Hematocrit 43 % (42-52); Hemoglobin 15.1 g/dL (14.0-18.0); Mean Corpuscular HGB Conc 35 g/dL (31-36); Mean Corpuscular Hemoglobin 31 pg (27-31); Mean Corpuscular Volume 89 fL (80-94); Mean Platelet Volume 9.7 fL (7.4-10.4); Platelet Count 370 10^3/uL (150-450); Red Blood Count 4.86 10^6 /uL (4.18-5.48); Red Cell Distribution Width 18 % (10-15); White Blood Count 15.6 10^3/uL (3.5-10.8)
[2020-12-24 08:53] LABS: Calcium 9.4 mg/dL (8.6-10.3); EGFR African American 97.8 (>60); EGFR Non-African American 80.8 (>60); Potassium 4.3 mmol/L (3.5-5.0)
[2020-12-24] MEDS: Multivitamins/Minerals TAB PO SCH (09:21)
[2020-12-24] MEDS: Amoxicillin/Clavul 500/125 TAB (Augmentin 500 mg tab) PO SCH ×2 (09:21→20:39)
[2020-12-24 09:51] LABS: ABS Basophils 0.1 10^3/ul (0-0.2); ABS Monocytes 1.2 10^3/ul (0-0.8); ABS Neutrophils 12.2 10^3/ul (1.5-7.7); Eosinophil % 0.2 %; Lymphocyte % 12.9 %
[2020-12-24] MEDS: Enoxaparin 40 MG/0.4 ML SYR SUBCUT SCH (20:40)
[2020-12-25 07:10] LABS: Hematocrit 43 % (42-52); Hemoglobin 15.1 g/dL (14.0-18.0); Mean Corpuscular HGB Conc 35 g/dL (31-36); Mean Corpuscular Hemoglobin 31 pg (27-31); Mean Corpuscular Volume 89 fL (80-94); Mean Platelet Volume 8.9 fL (7.4-10.4); Platelet Count 401 10^3/uL (150-450); Red Blood Count 4.83 10^6 /uL (4.18-5.48); Red Cell Distribution Width 18 % (10-15); White Blood Count 16.5 10^3/uL (3.5-10.8)
[2020-12-25 07:27] LABS: Calcium 9.1 mg/dL (8.6-10.3); EGFR African American 94.3 (>60); EGFR Non-African American 77.9 (>60); Potassium 4.5 mmol/L (3.5-5.0)
[2020-12-25] MEDS: Multivitamins/Minerals TAB PO SCH (07:40)
[2020-12-25 07:42] LABS: ABS Basophils 0.1 10^3/ul (0-0.2); ABS Eosinophils 0.1 10^3/ul (0-0.6); ABS Lymphocytes 1.9 10^3/ul (1.0-4.8); ABS Monocytes 1.3 10^3/ul (0-0.8); ABS Neutrophils 13.1 10^3/ul (1.5-7.7); Eosinophil % 0.7 %; Lymphocyte % 11.3 %; Nucleated Red Blood Cells % 0.1
[2020-12-25] MEDS: Amoxicillin/Clavul 500/125 TAB (Augmentin 500 mg tab) PO SCH (07:42)
[2020-12-25] MEDS: Enoxaparin 40 MG/0.4 ML SYR SUBCUT SCH (20:50)
[2020-12-26 07:22] LABS: Hematocrit 43 % (42-52); Hemoglobin 15.2 g/dL (14.0-18.0); Mean Corpuscular HGB Conc 35 g/dL (31-36); Mean Corpuscular Hemoglobin 31 pg (27-31); Mean Corpuscular Volume 89 fL (80-94); Mean Platelet Volume 9.2 fL (7.4-10.4); Platelet Count 438 10^3/uL (150-450); Red Blood Count 4.88 10^6 /uL (4.18-5.48); Red Cell Distribution Width 18 % (10-15); White Blood Count 17.5 10^3/uL (3.5-10.8)
[2020-12-26] MEDS: Multivitamins/Minerals TAB PO SCH (07:35)
[2020-12-26 07:40] LABS: Calcium 9.2 mg/dL (8.6-10.3); EGFR African American 78.1 (>60); EGFR Non-African American 64.5 (>60)
[2020-12-26 07:43] LABS: Albumin 3.4 g/dL (3.2-5.2); Albumin/Globulin Ratio 1.1 (1-3); Direct Bilirubin 0.1 mg/dL (0.03-0.18); Indirect Bilirubin 0.6 mg/dL (0.3-1.0); Total Bilirubin 0.7 mg/dL (0.2-1.0); Total Protein 6.4 g/dL (6.4-8.9)
[2020-12-26 07:46] LABS: CKMB ng/mL 0.9 ng/mL (0.6-6.3)
[2020-12-26 07:50] LABS: C Reactive Protein 80.42 mg/L (<8.01)
[2020-12-26 07:59] LABS: Potassium 5.2 mmol/L (3.5-5.0)
[2020-12-26 08:01] LABS: ABS Basophils 0.1 10^3/ul (0-0.2); ABS Eosinophils 0.3 10^3/ul (0-0.6); ABS Lymphocytes 1.5 10^3/ul (1.0-4.8); ABS Monocytes 1.4 10^3/ul (0-0.8); ABS Neutrophils 14.2 10^3/ul (1.5-7.7); Eosinophil % 1.8 %; Lymphocyte % 8.5 %
[2020-12-26 08:03] LABS: RBC Morphology Normal (Normal)
[2020-12-26 13:11] LABS: Calcium 9.4 mg/dL (8.6-10.3); EGFR Non-African American 76.1 (>60); Potassium 4.9 mmol/L (3.5-5.0)
[2020-12-26] MEDS: Nystatin TOP POWDER 15 GM BTL TOPICAL SCH ×2 (13:57→20:25)
[2020-12-26 15:50] LABS: HIV 4th Generation Nonreactive (Nonreactive)
[2020-12-26] MEDS: Enoxaparin 40 MG/0.4 ML SYR SUBCUT SCH (20:21)
[2020-12-26] MEDS: CMC:Ketoconazole 2 % CREAM (NF) 30 GM TUBE TOPICAL SCH (20:24)
[2020-12-27 06:50] LABS: Hematocrit 41 % (42-52); Hemoglobin 14.1 g/dL (14.0-18.0); Mean Corpuscular HGB Conc 35 g/dL (31-36); Mean Corpuscular Hemoglobin 31 pg (27-31); Mean Corpuscular Volume 90 fL (80-94); Mean Platelet Volume 9.1 fL (7.4-10.4); Platelet Count 423 10^3/uL (150-450); Red Blood Count 4.54 10^6 /uL (4.18-5.48); Red Cell Distribution Width 18 % (10-15); White Blood Count 15.4 10^3/uL (3.5-10.8)
[2020-12-27 07:01] LABS: Calcium 8.7 mg/dL (8.6-10.3); EGFR African American 96.6 (>60); EGFR Non-African American 79.8 (>60)
[2020-12-27 07:41] LABS: ABS Basophils 0.1 10^3/ul (0-0.2); ABS Eosinophils 0.4 10^3/ul (0-0.6); ABS Lymphocytes 1.5 10^3/ul (1.0-4.8); ABS Monocytes 1.3 10^3/ul (0-0.8); ABS Neutrophils 12.1 10^3/ul (1.5-7.7); Eosinophil % 2.6 %; Lymphocyte % 9.7 %
[2020-12-27] MEDS: Multivitamins/Minerals TAB PO SCH (08:38)
[2020-12-27] MEDS: CMC:Ketoconazole 2 % CREAM (NF) 30 GM TUBE TOPICAL SCH ×2 (08:43→21:33)
[2020-12-27] MEDS: Nystatin TOP POWDER 15 GM BTL TOPICAL SCH ×3 (08:48→21:41)
[2020-12-27 14:21] LABS: Aldolase 15.2 U/L (<7.7)
[2020-12-27] MEDS: Enoxaparin 40 MG/0.4 ML SYR SUBCUT SCH (21:35)
[2020-12-28 06:13] LABS: Hematocrit 39 % (42-52); Hemoglobin 13.4 g/dL (14.0-18.0); Mean Corpuscular HGB Conc 34 g/dL (31-36); Mean Corpuscular Hemoglobin 30 pg (27-31); Mean Corpuscular Volume 89 fL (80-94); Mean Platelet Volume 8.6 fL (7.4-10.4); Platelet Count 416 10^3/uL (150-450); Red Blood Count 4.41 10^6 /uL (4.18-5.48); Red Cell Distribution Width 18 % (10-15); White Blood Count 13.5 10^3/uL (3.5-10.8)
[2020-12-28 06:34] LABS: Calcium 8.7 mg/dL (8.6-10.3); EGFR African American 100.3 (>60); EGFR Non-African American 82.9 (>60); Potassium 4.2 mmol/L (3.5-5.0)
[2020-12-28 07:48] LABS: ABS Basophils 0.1 10^3/ul (0-0.2); ABS Eosinophils 0.4 10^3/ul (0-0.6); ABS Lymphocytes 1.6 10^3/ul (1.0-4.8); ABS Monocytes 1.3 10^3/ul (0-0.8); ABS Neutrophils 10.2 10^3/ul (1.5-7.7); Eosinophil % 2.7 %; Lymphocyte % 11.6 %
[2020-12-28 07:50] LABS: RBC Morphology Normal (Normal)
[2020-12-28] MEDS ORDERED: Mometasone/Formoter 200/5 MDI INH SCH (09:00)
[2020-12-28] MEDS: Multivitamins/Minerals TAB PO SCH (09:48)
[2020-12-28] MEDS: Nystatin TOP POWDER 15 GM BTL TOPICAL SCH ×3 (09:49→21:21)
[2020-12-28] MEDS ORDERED: Furosemide 20 mg/2 ml IV VIAL IV ONE (10:14)
[2020-12-28] MEDS ORDERED: Albuterol/Ipratropium NEB.SOL (2.5/0.5 MG) 3 ML NEB.SOLN INH PRN (10:22)
[2020-12-28] MEDS: CMC:Ketoconazole 2 % CREAM (NF) 30 GM TUBE TOPICAL SCH ×2 (10:57→21:37)
[2020-12-28] MEDS: Enoxaparin 40 MG/0.4 ML SYR SUBCUT SCH (21:33)
[2020-12-29] MEDS: Multivitamins/Minerals TAB PO SCH (08:50)
[2020-12-29] MEDS: Nystatin TOP POWDER 15 GM BTL TOPICAL SCH ×3 (09:01→21:01)
[2020-12-29] MEDS: CMC:Ketoconazole 2 % CREAM (NF) 30 GM TUBE TOPICAL SCH ×2 (10:03→21:00)
[2020-12-29] MEDS: Enoxaparin 40 MG/0.4 ML SYR SUBCUT SCH (21:00)
[2020-12-30] MEDS: Multivitamins/Minerals TAB PO SCH (08:31)
[2020-12-30] MEDS: CMC:Ketoconazole 2 % CREAM (NF) 30 GM TUBE TOPICAL SCH ×2 (08:31→20:37)
[2020-12-30] MEDS: Nystatin TOP POWDER 15 GM BTL TOPICAL SCH ×3 (08:32→20:39)
[2020-12-30] MEDS: Enoxaparin 40 MG/0.4 ML SYR SUBCUT SCH (20:38)
[2020-12-31] MEDS: Multivitamins/Minerals TAB PO SCH (08:54)
[2020-12-31] MEDS: Nystatin TOP POWDER 15 GM BTL TOPICAL SCH ×3 (08:59→20:53)
[2020-12-31] MEDS: CMC:Ketoconazole 2 % CREAM (NF) 30 GM TUBE TOPICAL SCH ×2 (09:22→20:49)
[2020-12-31] MEDS: Enoxaparin 40 MG/0.4 ML SYR SUBCUT SCH (20:50)
[2021-01-01] MEDS: Multivitamins/Minerals TAB PO SCH (10:10)
[2021-01-01] MEDS: CMC:Ketoconazole 2 % CREAM (NF) 30 GM TUBE TOPICAL SCH (10:13)
[2021-01-01] MEDS: Nystatin TOP POWDER 15 GM BTL TOPICAL SCH (10:19)
[2021-01-01 14:24] VITALS: BP 126/74
== END 2021-01-01 14:50 | DRG 871 ==
LOC: ED 13:31 → MED 20:00 → SUATTDRO 20:00 → MED 21:50 → MEDTELE 12-18 04:29
PROVIDERS: ADMIT Internal Medicine; ATTEND Internal Medicine

== ENCOUNTER 2021-11-14 16:00 | Inpatient (IN) ==
[2021-11-14 18:03] LABS: ABS Basophils 0.1 10^3/ul (0-0.2); ABS Eosinophils 0.1 10^3/ul (0-0.6); ABS Lymphocytes 1.9 10^3/ul (1.0-4.8); ABS Monocytes 0.7 10^3/ul (0-0.8); ABS Neutrophils 7.3 10^3/ul (1.5-7.7); Eosinophil % 0.9 %; Hematocrit 49 % (42-52); Hemoglobin 16.8 g/dL (14.0-18.0); Lymphocyte % 18.9 %; Mean Corpuscular HGB Conc 34 g/dL (31-36); Mean Corpuscular Hemoglobin 30 pg (27-31); Mean Corpuscular Volume 88 fL (80-94); Mean Platelet Volume 8.4 fL (7.4-10.4); Platelet Count 189 10^3/uL (150-450); Red Blood Count 5.55 10^6 /uL (4.18-5.48); Red Cell Distribution Width 13 % (10-15); White Blood Count 10.1 10^3/uL (3.5-10.8)
[2021-11-14 18:43] LABS: ALT 12 U/L (7-52); AST 14 U/L (13-39); Acetaminophen < 15 mcg/mL; Albumin 4.7 g/dL (3.2-5.2); Albumin/Globulin Ratio 1.7 (1-3); Alcohol, S < 13 mg/dL (<13); Alkaline Phosphatase 139 U/L (35-149); Anion Gap 9 mmol/L (2-11); Blood Urea Nitrogen 16 mg/dL (6-24); CO2 Carbon Dioxide 23 mmol/L (22-32); Calcium 10.1 mg/dL (8.6-10.3); Chloride 107 mmol/L (101-111); Creatinine, Serum 1.15 mg/dL (0.67-1.17); Globulin 2.7 g/dL (2-4); Glucose 100 mg/dL (70-100); Potassium 4.3 mmol/L (3.5-5.0); Salicylate < 2.50 mg/dL (<30); Sodium 139 mmol/L (135-145); Total Protein 7.4 g/dL (6.4-8.9); eGFR CKD-EPI 69.3 (>60)
[2021-11-14] MEDS ORDERED: Haloperidol 5 mg/ml SDV IV/IM 5 MG/ML AMP IM ONE (22:05)
[2021-11-14] MEDS ORDERED: LORazepam 2 mg VIAL 1 ml IM ONE (22:05)
[2021-11-15] MEDS: Multivitamins/Minerals TAB PO SCH (07:50)
[2021-11-16] MEDS: Multivitamins/Minerals TAB PO SCH (10:13)
[2021-11-17] MEDS: Multivitamins/Minerals TAB PO SCH (08:57)
[2021-11-18] MEDS: Multivitamins/Minerals TAB PO SCH (09:34)
[2021-11-19] MEDS: Multivitamins/Minerals TAB PO SCH (09:54)
[2021-11-20] MEDS: Multivitamins/Minerals TAB PO SCH (09:46)
[2021-11-21] MEDS: Multivitamins/Minerals TAB PO SCH (08:44)
[2021-11-22] MEDS: Multivitamins/Minerals TAB PO SCH (07:52)
[2021-11-23] MEDS: Multivitamins/Minerals TAB PO SCH (11:13)
[2021-11-24] MEDS: Multivitamins/Minerals TAB PO SCH (10:02)
[2021-11-25] MEDS: Multivitamins/Minerals TAB PO SCH (08:25)
[2021-11-26] MEDS: Multivitamins/Minerals TAB PO SCH (08:36)
[2021-11-27] MEDS: Multivitamins/Minerals TAB PO SCH (08:21)
[2021-11-28] MEDS: Multivitamins/Minerals TAB PO SCH (08:14)
[2021-11-29] MEDS: Multivitamins/Minerals TAB PO SCH (08:45)
[2021-11-30] MEDS: Multivitamins/Minerals TAB PO SCH (09:42)
[2021-12-01] MEDS: Multivitamins/Minerals TAB PO SCH (10:10)
[2021-12-02] MEDS: Multivitamins/Minerals TAB PO SCH (09:01)
[2021-12-03] MEDS: Multivitamins/Minerals TAB PO SCH (08:46)
[2021-12-04] MEDS: Multivitamins/Minerals TAB PO SCH (08:28)
[2021-12-05] MEDS: Multivitamins/Minerals TAB PO SCH (10:00)
[2021-12-06] MEDS: Multivitamins/Minerals TAB PO SCH (08:31)
[2021-12-07] MEDS: Multivitamins/Minerals TAB PO SCH (09:56)
[2021-12-08] MEDS: Multivitamins/Minerals TAB PO SCH (09:36)
[2021-12-09] MEDS: Multivitamins/Minerals TAB PO SCH (11:08)
[2021-12-10] MEDS: Multivitamins/Minerals TAB PO SCH ×2 (07:44→13:30)
[2021-12-11] MEDS: Multivitamins/Minerals TAB PO SCH (09:54)
[2021-12-12] MEDS: Multivitamins/Minerals TAB PO SCH (09:41)
[2021-12-13] MEDS: Multivitamins/Minerals TAB PO SCH (09:05)
[2021-12-14] MEDS: Multivitamins/Minerals TAB PO SCH (10:30)
[2021-12-15] MEDS: Multivitamins/Minerals TAB PO SCH (12:06)
[2021-12-16] MEDS: Multivitamins/Minerals TAB PO SCH (08:37)
[2021-12-17] MEDS: Multivitamins/Minerals TAB PO SCH (08:27)
[2021-12-18] MEDS: Multivitamins/Minerals TAB PO SCH (08:36)
[2021-12-19] MEDS: Multivitamins/Minerals TAB PO SCH (07:44)
[2021-12-20] MEDS: Multivitamins/Minerals TAB PO SCH (10:57)
[2021-12-21] MEDS: Multivitamins/Minerals TAB PO SCH (10:26)
[2021-12-22] MEDS: Multivitamins/Minerals TAB PO SCH (10:38)
[2021-12-23] MEDS: Multivitamins/Minerals TAB PO SCH (11:15)
[2021-12-24] MEDS: Multivitamins/Minerals TAB PO SCH (09:42)
[2021-12-25] MEDS: Multivitamins/Minerals TAB PO SCH (08:50)
[2021-12-26] MEDS: Multivitamins/Minerals TAB PO SCH (09:37)
[2021-12-27] MEDS: Multivitamins/Minerals TAB PO SCH (09:39)
[2021-12-28] MEDS: Multivitamins/Minerals TAB PO SCH (10:48)
[2021-12-29] MEDS: Multivitamins/Minerals TAB PO SCH (11:37)
[2021-12-30] MEDS: Multivitamins/Minerals TAB PO SCH (08:32)
[2021-12-31] MEDS: Multivitamins/Minerals TAB PO SCH (12:19)
[2022-01-01] MEDS: Multivitamins/Minerals TAB PO SCH (08:45)
[2022-01-02] MEDS: Multivitamins/Minerals TAB PO SCH (08:24)
[2022-01-03] MEDS: Multivitamins/Minerals TAB PO SCH (08:19)
[2022-01-04] MEDS: Multivitamins/Minerals TAB PO SCH (12:42)
[2022-01-05] MEDS: Multivitamins/Minerals TAB PO SCH (09:35)
[2022-01-06] MEDS: Multivitamins/Minerals TAB PO SCH (13:27)
[2022-01-07] MEDS: Multivitamins/Minerals TAB PO SCH (11:27)
[2022-01-08] MEDS: Multivitamins/Minerals TAB PO SCH (09:39)
[2022-01-09] MEDS: Multivitamins/Minerals TAB PO SCH (08:55)
[2022-01-10] MEDS: Multivitamins/Minerals TAB PO SCH (11:03)
[2022-01-11] MEDS: Multivitamins/Minerals TAB PO SCH (12:24)
[2022-01-12] MEDS: Multivitamins/Minerals TAB PO SCH (09:33)
[2022-01-13] MEDS: Multivitamins/Minerals TAB PO SCH (09:16)
[2022-01-14] MEDS: Multivitamins/Minerals TAB PO SCH (10:10)
[2022-01-15] MEDS: Multivitamins/Minerals TAB PO SCH (10:38)
[2022-01-16] MEDS: Multivitamins/Minerals TAB PO SCH (08:39)
[2022-01-17] MEDS: Multivitamins/Minerals TAB PO SCH (10:28)
[2022-01-18] MEDS: Multivitamins/Minerals TAB PO SCH (08:19)
[2022-01-19] MEDS: Multivitamins/Minerals TAB PO SCH (09:58)
[2022-01-20] MEDS: Multivitamins/Minerals TAB PO SCH (12:05)
[2022-01-21] MEDS: Multivitamins/Minerals TAB PO SCH (09:16)
[2022-01-22] MEDS: Multivitamins/Minerals TAB PO SCH (11:03)
[2022-01-23] MEDS: Multivitamins/Minerals TAB PO SCH (09:58)
[2022-01-24] MEDS: Multivitamins/Minerals TAB PO SCH (10:35)
[2022-01-25] MEDS: Multivitamins/Minerals TAB PO SCH (08:56)
[2022-01-26] MEDS: Multivitamins/Minerals TAB PO SCH (10:56)
[2022-01-27] MEDS: Multivitamins/Minerals TAB PO SCH (08:02)
[2022-01-28] MEDS: Multivitamins/Minerals TAB PO SCH (09:57)
[2022-01-29] MEDS: Multivitamins/Minerals TAB PO SCH (12:10)
[2022-01-30] MEDS: Multivitamins/Minerals TAB PO SCH ×2 (12:23→14:01)
[2022-01-31] MEDS: Multivitamins/Minerals TAB PO SCH (09:25)
[2022-02-01] MEDS: Multivitamins/Minerals TAB PO SCH (12:21)
[2022-02-02] MEDS: Multivitamins/Minerals TAB PO SCH (10:00)
[2022-02-03] MEDS: Multivitamins/Minerals TAB PO SCH (08:59)
[2022-02-04] MEDS: Multivitamins/Minerals TAB PO SCH (09:15)
[2022-02-05] MEDS: Multivitamins/Minerals TAB PO SCH (07:54)
[2022-02-06] MEDS: Multivitamins/Minerals TAB PO SCH (09:59)
[2022-02-07] MEDS: Multivitamins/Minerals TAB PO SCH (08:56)
[2022-02-08] MEDS: Multivitamins/Minerals TAB PO SCH (09:24)
[2022-02-09] MEDS: Multivitamins/Minerals TAB PO SCH (09:47)
[2022-02-10] MEDS: Multivitamins/Minerals TAB PO SCH (10:26)
[2022-02-11] MEDS: Multivitamins/Minerals TAB PO SCH (08:57)
[2022-02-12] MEDS: Multivitamins/Minerals TAB PO SCH (11:21)
[2022-02-13] MEDS: Multivitamins/Minerals TAB PO SCH (10:19)
[2022-02-14] MEDS: Multivitamins/Minerals TAB PO SCH (09:18)
[2022-02-15] MEDS: Multivitamins/Minerals TAB PO SCH (09:41)
[2022-02-16] MEDS: Multivitamins/Minerals TAB PO SCH (11:00)
[2022-02-17] MEDS: Multivitamins/Minerals TAB PO SCH (10:48)
[2022-02-18] MEDS: Multivitamins/Minerals TAB PO SCH (12:24)
[2022-02-19] MEDS: Multivitamins/Minerals TAB PO SCH (10:26)
[2022-02-20] MEDS: Multivitamins/Minerals TAB PO SCH (10:01)
[2022-02-21] MEDS: Multivitamins/Minerals TAB PO SCH (10:44)
[2022-02-22] MEDS: Multivitamins/Minerals TAB PO SCH (10:27)
[2022-02-23] MEDS: Multivitamins/Minerals TAB PO SCH (08:17)
[2022-02-24] MEDS: Multivitamins/Minerals TAB PO SCH (09:06)
[2022-02-25] MEDS: Multivitamins/Minerals TAB PO SCH (10:38)
[2022-02-26] MEDS: Multivitamins/Minerals TAB PO SCH (08:02)
[2022-02-27] MEDS: Multivitamins/Minerals TAB PO SCH (08:52)
[2022-02-28] MEDS: Multivitamins/Minerals TAB PO SCH (09:27)
[2022-03-01] MEDS: Multivitamins/Minerals TAB PO SCH (09:07)
[2022-03-02] MEDS: Multivitamins/Minerals TAB PO SCH (09:03)
[2022-03-03] MEDS: Multivitamins/Minerals TAB PO SCH (09:32)
[2022-03-04] MEDS: Multivitamins/Minerals TAB PO SCH (09:04)
[2022-03-05] MEDS: Multivitamins/Minerals TAB PO SCH (09:52)
[2022-03-06] MEDS: Multivitamins/Minerals TAB PO SCH (09:57)
[2022-03-07] MEDS: Multivitamins/Minerals TAB PO SCH (08:53)
[2022-03-08] MEDS: Multivitamins/Minerals TAB PO SCH (08:07)
[2022-03-09] MEDS: Multivitamins/Minerals TAB PO SCH (10:31)
[2022-03-10] MEDS: Multivitamins/Minerals TAB PO SCH (08:47)
[2022-03-11] MEDS: Multivitamins/Minerals TAB PO SCH (08:10)
[2022-03-12] MEDS: Multivitamins/Minerals TAB PO SCH (08:56)
[2022-03-13] MEDS: Multivitamins/Minerals TAB PO SCH (08:24)
[2022-03-14] MEDS: Multivitamins/Minerals TAB PO SCH (09:32)
[2022-03-15] MEDS: Multivitamins/Minerals TAB PO SCH (09:51)
[2022-03-16] MEDS: Multivitamins/Minerals TAB PO SCH (11:01)
[2022-03-17] MEDS: Multivitamins/Minerals TAB PO SCH (08:36)
[2022-03-18] MEDS: Multivitamins/Minerals TAB PO SCH (09:44)
[2022-03-19] MEDS: Multivitamins/Minerals TAB PO SCH (10:08)
[2022-03-20] MEDS: Multivitamins/Minerals TAB PO SCH (08:45)
[2022-03-21] MEDS: Multivitamins/Minerals TAB PO SCH (11:16)
[2022-03-22] MEDS: Multivitamins/Minerals TAB PO SCH (08:58)
[2022-03-23] MEDS: Multivitamins/Minerals TAB PO SCH (07:31)
[2022-03-24] MEDS: Multivitamins/Minerals TAB PO SCH (08:40)
[2022-03-25] MEDS: Multivitamins/Minerals TAB PO SCH (08:54)
[2022-03-26] MEDS: Multivitamins/Minerals TAB PO SCH (09:35)
[2022-03-27] MEDS: Multivitamins/Minerals TAB PO SCH (10:10)
[2022-03-28] MEDS: Multivitamins/Minerals TAB PO SCH (10:41)
[2022-03-29] MEDS: Multivitamins/Minerals TAB PO SCH (09:37)
[2022-03-30] MEDS: Multivitamins/Minerals TAB PO SCH (15:06)
[2022-03-31] MEDS: Multivitamins/Minerals TAB PO SCH (08:30)
[2022-04-01] MEDS: Multivitamins/Minerals TAB PO SCH (08:41)
[2022-04-02] MEDS: Multivitamins/Minerals TAB PO SCH (11:52)
[2022-04-03] MEDS: Multivitamins/Minerals TAB PO SCH (08:28)
[2022-04-04] MEDS: Multivitamins/Minerals TAB PO SCH (09:17)
[2022-04-05] MEDS: Multivitamins/Minerals TAB PO SCH (08:57)
[2022-04-06] MEDS: Multivitamins/Minerals TAB PO SCH (16:56)
[2022-04-07] MEDS: Multivitamins/Minerals TAB PO SCH (11:29)
[2022-04-08] MEDS: Multivitamins/Minerals TAB PO SCH (11:14)
[2022-04-09] MEDS: Multivitamins/Minerals TAB PO SCH (10:06)
[2022-04-10] MEDS: Multivitamins/Minerals TAB PO SCH (09:20)
[2022-04-11] MEDS: Multivitamins/Minerals TAB PO SCH (08:38)
[2022-04-12] MEDS: Multivitamins/Minerals TAB PO SCH (08:07)
[2022-04-13] MEDS: Multivitamins/Minerals TAB PO SCH (08:18)
[2022-04-14] MEDS: Multivitamins/Minerals TAB PO SCH (08:50)
[2022-04-15] MEDS: Multivitamins/Minerals TAB PO SCH (07:06)
[2022-04-16] MEDS: Multivitamins/Minerals TAB PO SCH (08:41)
[2022-04-17] MEDS: Multivitamins/Minerals TAB PO SCH (11:44)
[2022-04-18] MEDS: Multivitamins/Minerals TAB PO SCH (08:47)
[2022-04-19] MEDS: Multivitamins/Minerals TAB PO SCH (12:04)
[2022-04-20] MEDS: Multivitamins/Minerals TAB PO SCH (13:49)
[2022-04-21] MEDS: Multivitamins/Minerals TAB PO SCH (10:30)
[2022-04-22] MEDS: Multivitamins/Minerals TAB PO SCH (08:24)
[2022-04-23] MEDS: Multivitamins/Minerals TAB PO SCH (08:44)
[2022-04-24] MEDS: Multivitamins/Minerals TAB PO SCH (10:18)
[2022-04-25] MEDS: Multivitamins/Minerals TAB PO SCH (08:39)
[2022-04-26] MEDS: Multivitamins/Minerals TAB PO SCH (08:44)
[2022-04-27] MEDS: Multivitamins/Minerals TAB PO SCH (08:58)
[2022-04-28] MEDS: Multivitamins/Minerals TAB PO SCH (08:52)
[2022-04-29] MEDS: Multivitamins/Minerals TAB PO SCH (10:54)
[2022-04-30] MEDS: Multivitamins/Minerals TAB PO SCH (10:22)
[2022-05-01] MEDS: Multivitamins/Minerals TAB PO SCH (09:34)
[2022-05-02] MEDS: Multivitamins/Minerals TAB PO SCH (09:40)
[2022-05-03] MEDS: Multivitamins/Minerals TAB PO SCH (12:07)
[2022-05-04] MEDS: Multivitamins/Minerals TAB PO SCH (08:15)
[2022-05-05] MEDS: Multivitamins/Minerals TAB PO SCH (09:03)
[2022-05-06] MEDS: Multivitamins/Minerals TAB PO SCH (07:51)
[2022-05-07] MEDS: Multivitamins/Minerals TAB PO SCH (08:28)
[2022-05-08] MEDS: Multivitamins/Minerals TAB PO SCH (09:54)
[2022-05-09] MEDS: Multivitamins/Minerals TAB PO SCH (08:04)
[2022-05-09] MEDS ORDERED: Haloperidol 5 mg/ml SDV IV/IM 5 MG/ML AMP IM ONE (14:58)
[2022-05-10] MEDS: Multivitamins/Minerals TAB PO SCH (07:51)
[2022-05-11] MEDS: Multivitamins/Minerals TAB PO SCH (07:54)
[2022-05-12] MEDS: Multivitamins/Minerals TAB PO SCH (09:14)
[2022-05-13] MEDS: Multivitamins/Minerals TAB PO SCH (11:47)
[2022-05-14] MEDS: Multivitamins/Minerals TAB PO SCH (11:41)
[2022-05-15] MEDS: Multivitamins/Minerals TAB PO SCH (10:30)
[2022-05-16] MEDS: Multivitamins/Minerals TAB PO SCH (08:44)
[2022-05-17] MEDS: Multivitamins/Minerals TAB PO SCH (11:16)
[2022-05-18] MEDS: Multivitamins/Minerals TAB PO SCH (09:37)
[2022-05-19] MEDS: Multivitamins/Minerals TAB PO SCH (08:35)
[2022-05-20] MEDS: Multivitamins/Minerals TAB PO SCH (09:31)
[2022-05-21] MEDS: Multivitamins/Minerals TAB PO SCH (08:27)
[2022-05-22] MEDS: Multivitamins/Minerals TAB PO SCH (11:11)
[2022-05-23] MEDS: Multivitamins/Minerals TAB PO SCH (10:26)
[2022-05-24] MEDS: Multivitamins/Minerals TAB PO SCH (09:54)
[2022-05-25] MEDS: Multivitamins/Minerals TAB PO SCH (08:58)
[2022-05-26] MEDS: Multivitamins/Minerals TAB PO SCH (09:13)
[2022-05-27] MEDS: Multivitamins/Minerals TAB PO SCH (11:38)
[2022-05-28] MEDS: Multivitamins/Minerals TAB PO SCH (10:16)
[2022-05-29] MEDS: Multivitamins/Minerals TAB PO SCH (11:15)
[2022-05-30] MEDS: Multivitamins/Minerals TAB PO SCH (11:46)
[2022-05-31] MEDS: Multivitamins/Minerals TAB PO SCH (14:29)
[2022-06-01 11:18] LABS: Rapid COVID-19 Molecular Undetected (Undetected)
[2022-06-01] MEDS: Multivitamins/Minerals TAB PO SCH (11:36)
[2022-06-02] MEDS: Multivitamins/Minerals TAB PO SCH (08:56)
[2022-06-03] MEDS: Multivitamins/Minerals TAB PO SCH (09:29)
[2022-06-04] MEDS: Multivitamins/Minerals TAB PO SCH (08:34)
[2022-06-05] MEDS: Multivitamins/Minerals TAB PO SCH (08:52)
[2022-06-06] MEDS: Multivitamins/Minerals TAB PO SCH (07:52)
[2022-06-07] MEDS: Multivitamins/Minerals TAB PO SCH (08:09)
[2022-06-08] MEDS: Multivitamins/Minerals TAB PO SCH (09:01)
[2022-06-09] MEDS: Multivitamins/Minerals TAB PO SCH (08:56)
[2022-06-10] MEDS: Multivitamins/Minerals TAB PO SCH (09:08)
[2022-06-11] MEDS: Multivitamins/Minerals TAB PO SCH (09:58)
[2022-06-12] MEDS: Multivitamins/Minerals TAB PO SCH (08:39)
[2022-06-13] MEDS: Multivitamins/Minerals TAB PO SCH (09:40)
[2022-06-14] MEDS: Multivitamins/Minerals TAB PO SCH (10:06)
[2022-06-15] MEDS: Multivitamins/Minerals TAB PO SCH (09:06)
[2022-06-16] MEDS: Multivitamins/Minerals TAB PO SCH (08:37)
[2022-06-17] MEDS: Multivitamins/Minerals TAB PO SCH (09:14)
[2022-06-18] MEDS: Multivitamins/Minerals TAB PO SCH (10:20)
[2022-06-19] MEDS: Multivitamins/Minerals TAB PO SCH (08:50)
[2022-06-20] MEDS: Multivitamins/Minerals TAB PO SCH (09:36)
[2022-06-21] MEDS: Multivitamins/Minerals TAB PO SCH (10:05)
[2022-06-22] MEDS: Multivitamins/Minerals TAB PO SCH (09:35)
[2022-06-23] MEDS: Multivitamins/Minerals TAB PO SCH (08:44)
[2022-06-24] MEDS: Multivitamins/Minerals TAB PO SCH (07:46)
[2022-06-25] MEDS: Multivitamins/Minerals TAB PO SCH (09:17)
[2022-06-26] MEDS: Multivitamins/Minerals TAB PO SCH (08:49)
[2022-06-27] MEDS: Multivitamins/Minerals TAB PO SCH (08:03)
[2022-06-28] MEDS: Multivitamins/Minerals TAB PO SCH (11:22)
[2022-06-29] MEDS: Multivitamins/Minerals TAB PO SCH (07:43)
[2022-06-30] MEDS: Multivitamins/Minerals TAB PO SCH (07:51)
[2022-07-01] MEDS: Multivitamins/Minerals TAB PO SCH (10:03)
[2022-07-02] MEDS: Multivitamins/Minerals TAB PO SCH (08:56)
[2022-07-03] MEDS: Multivitamins/Minerals TAB PO SCH (09:12)
[2022-07-04] MEDS: Multivitamins/Minerals TAB PO SCH (08:10)
[2022-07-05] MEDS: Multivitamins/Minerals TAB PO SCH (09:16)
[2022-07-06] MEDS: Multivitamins/Minerals TAB PO SCH (09:49)
[2022-07-06] MEDS: Senna TAB 8.6 mg TAB PO PRN (20:38)
[2022-07-07] MEDS: Multivitamins/Minerals TAB PO SCH (08:38)
[2022-07-08] MEDS: Multivitamins/Minerals TAB PO SCH (08:09)
[2022-07-09] MEDS: Multivitamins/Minerals TAB PO SCH (07:55)
[2022-07-10] MEDS: Multivitamins/Minerals TAB PO SCH (08:22)
[2022-07-11] MEDS: Multivitamins/Minerals TAB PO SCH (09:15)
[2022-07-12] MEDS: Multivitamins/Minerals TAB PO SCH (08:54)
[2022-07-13] MEDS: Multivitamins/Minerals TAB PO SCH (08:43)
[2022-07-13 13:08] LABS: Rapid COVID-19 Molecular Undetected (Undetected)
[2022-07-14] MEDS: Multivitamins/Minerals TAB PO SCH (09:51)
[2022-07-15] MEDS: Multivitamins/Minerals TAB PO SCH (09:27)
[2022-07-15] MEDS: Senna TAB 8.6 mg TAB PO PRN (19:34)
[2022-07-16] MEDS: Multivitamins/Minerals TAB PO SCH (10:24)
[2022-07-17] MEDS: Multivitamins/Minerals TAB PO SCH (09:13)
[2022-07-18] MEDS: Multivitamins/Minerals TAB PO SCH (08:56)
[2022-07-19] MEDS: Multivitamins/Minerals TAB PO SCH (08:41)
[2022-07-20] MEDS: Multivitamins/Minerals TAB PO SCH (07:36)
[2022-07-20 12:16] VITALS: BP 129/78
[2022-07-20] MEDS: Senna TAB 8.6 mg TAB PO PRN (21:35)
[2022-07-21] MEDS: Multivitamins/Minerals TAB PO SCH (07:16)
[2022-07-21 13:40] LABS: Rapid COVID-19 Molecular Undetected (Undetected)
[2022-07-22] MEDS: Multivitamins/Minerals TAB PO SCH (09:02)
== END 2022-07-22 11:05 | DRG 886 ==
LOC: ED 16:00 → EDHOLD 21:40 → SUATTDRO 21:40 → EDHOLD 11-15 13:22 → MEDTELE 11-15 13:33
PROVIDERS: ADMIT Student in an Organized Health Care Education/Training Program; ATTEND Internal Medicine